=== PATIENT | female | born 1995 | race Caucasian/White ===

== ENCOUNTER 2016-03-23 15:25 | Emergency (ER) | payer BC ==
[2016-03-23 15:40] VITALS: BP 125/90
--- NOTE | 2016-03-23 15:45 | UC ---
Respiratory Complaint HPI - HPI Summary HPI Summary: pt c/o cough, fever, fatigue, generalized X1 week. Cough is worse at night. C/ o that chest is now feeling "tight". - History of Current Complaint Chief Complaint: UCGeneralIllness Stated Complaint: COUGH Time Seen by Provider: 03/23/16 15:37 Hx Obtained From: Patient Hx Last Menstrual Period: 1-2 weeks ago ?: No Onset/Duration: Gradual Onset, Lasting Days Timing: Constant Severity Initially: Mild Severity Currently: Mild Character: Cough: Nonproductive Aggravating Factors: Recumbent Position Associated Signs And Symptoms: Positive: URI - Allergies/Home Medications Allergies/Adverse Reactions: Allergies Allergy/AdvReac Type Severity Reaction Status Date / Time No Known Allergies Allergy Verified 02/01/13 20:26 Home Medications: Home Medications Ibuprofen [Advil] 03/23/16 [History] PMH/Surg Hx/FS Hx/Imm Hx Previously Healthy: Yes - Surgical History Surgical History: Yes Surgery Procedure, Year, and Place: wisdom teeth removal - Family History Known Family History: Positive: Other - positive URI - Social History Occupation: Student Lives: With Family Alcohol Use: Rare Substance Use Type: None Smoking Status (MU): Never Smoked Tobacco - Immunization History Most Recent Influenza Vaccination: unknown Review of Systems Constitutional: Fever, Chills, Fatigue Skin: Negative Eyes: Negative ENT: Sore Throat Respiratory: Cough Cardiovascular: Negative Gastrointestinal: Negative Genitourinary: Negative Motor: Negative Neurovascular: Negative Musculoskeletal: Myalgia Neurological: Negative Psychological: Negative All Other Systems Reviewed And Are Negative: Yes Physical Exam Triage Information Reviewed: Yes Appearance: Ill-Appearing Vital Signs: Initial Vital Signs Temp 99.1 F 03/23/16 15:36 Pulse 76 03/23/16 15:36 Resp 16 03/23/16 15:36 BP 125/90 03/23/16 15:36 Pulse Ox 99 03/23/16 15:36 Vital Signs Reviewed: Yes ENT Exam: Other ENT: Positive: Nasal congestion, Tonsillar swelling Neck exam: Normal Respiratory Exam: Normal Cardiovascular Exam: Normal Musculoskeletal Exam: Normal Neurological Exam: Normal Psychological Exam: Normal Skin Exam: Normal UC Diagnostic Evaluation - Laboratory O2 Sat by Pulse Oximetry: 99 Respiratory Course/Dx - Differential Dx/Diagnosis Differential Diagnosis/HQI/PQRI: Bronchitis, Other - uri Provider Diagnoses: Bronchitis Discharge - Discharge Plan Condition: Stable Disposition: HOME Prescriptions: Azithromycin TAB* [Zithromax TAB (Z-ARON) 250 mg #6 tabs] 2 tab PO .TODAY, THEN 1 DAILY #1 aron Benzonatate CAP* [Tessalon CAP*] 100 mg PO TID PRN #15 cap PRN Reason: Cough Patient Education Materials: Acute Bronchitis (ED) Referrals: [facility] [place] [facility] [Outside] No Primary Care Phys,NOPCP [Primary Care Provider] -
== END 2016-03-23 15:55 | disposition home or self-care (01) ==
LOC: UCEAST 15:25
DX: J40 Bronchitis, not specified as acute or chronic (principal)
CPT/HCPCS: 99202; G0463

== ENCOUNTER 2016-11-30 14:58 | Emergency (ER) | payer BC ==
[2016-11-30] MEDS ORDERED: Ketorolac INJ* 30 MG/ML 1 ML VIAL IV PUSH ONE (18:39)
[2016-11-30] MEDS ORDERED: Amoxicillin PO (*) 250 MG CAP PO ONE (18:39)
[2016-11-30] MEDS ORDERED: Dexamethasone IV* 4 MG/ML 1 ML (4 MG) IV SLOW PU ONE (18:39)
--- NOTE | 2016-11-30 19:11 | ED ---
Throat Pain/Nasal Congestion - HPI Summary HPI Summary: Pt here w/ tonsilitis x 1 week. Was seen by CC and had rapid strep as well as mono test - both negative. She is here today as her tonsils are quite swollen making swallowing uncomfortable although she is still able to swallow and breath. Denies fever, chills, N/V/D. Has intermittent ear pressure and headache - no neck pain or stiffness, no CP or shortness of breath nor cough. She has h/ o strep once but not recurrently. Tonsils are large at baseline but this is larger than usual. Tried ibuprofen yesterday - has not had any today. Imms are UTD. No sick contacts. - History of Current Complaint Chief Complaint: EDThroatPain Time Seen by Provider: 11/30/16 17:24 Hx Obtained From: Patient, Family/[employer] Farm[employer] - mom - Allergies/Home Medications Allergies/Adverse Reactions: Allergies Allergy/AdvReac Type Severity Reaction Status Date / Time No Known Allergies Allergy Verified 02/01/13 20:26 PMH/Surg Hx/FS Hx/Imm Hx Previously Healthy: Yes Endocrine/Hematology History: Denies: Autoimmune Disease Respiratory History: Denies: Hx Asthma - Surgical History Surgery Procedure, Year, and Place: wisdom teeth removal - Immunization History Immunizations Up to Date: Yes Infectious Disease History: No Infectious Disease History: Denies: Traveled Outside the [place] in Last 30 Days - Family History Known Family History: Positive: Other - positive URI - Social History Lives: With Family Alcohol Use: Occasionally Hx Substance Use: No Substance Use Type: Reports: None Hx Tobacco Use: No Smoking Status (MU): Never Smoked Tobacco Review of Systems Constitutional: Negative Negative: Fever, Chills, Fatigue Eyes: Negative Negative: Photophobia, Blurred Vision, Diplopia, Erythema ENT: Other - see HPI Cardiovascular: Negative Negative: Chest Pain Respiratory: Negative Negative: Shortness Of Breath, Cough Gastrointestinal: Negative Positive: no symptoms reported Musculoskeletal: Negative Skin: Negative Neurological: Other - see HPI Psychological: Normal All Other Systems Reviewed And Are Negative: Yes Physical Exam Triage Information Reviewed: Yes Vital Signs On Initial Exam: Initial Vitals Temp Pulse Resp BP Pulse Ox 98.7 F 69 14 152/95 97 11/30/16 15:15 11/30/16 15:15 11/30/16 15:15 11/30/16 15:15 11/30/16 15:15 Vital Signs Reviewed: Yes Appearance: Positive: Well-Appearing, No Pain Distress, Obese Skin: Positive: Warm, Dry - no rash Head/Face: Positive: Normal Head/Face Inspection - sinuses NTTP Eyes: Positive: Normal, EOMI, TAMAR, Conjunctiva Clear. Negative: Conjunctiva Inflammed, Discharge ENT: Positive: Hearing grossly normal, TMs normal, Tonsillar swelling - +3 B/L; pt's voice with subtle muffling - she is able to speak full sentences w/o hesitation, coughing or gagging - handling secretions well and breathing well, Tonsillar exudate - white/bryant within cryptic pockets. Negative: Nasal congestion, Nasal drainage, Trismus Neck: Positive: Supple, Nontender, No Lymphadenopathy - fullness w/o discrete LN palpation Respiratory/Lung Sounds: Positive: Clear to Auscultation, Breath Sounds Present. Negative: Rales, Rhonchi, Stridor, Wheezes Cardiovascular: Positive: Normal, RRR, S1, S2. Negative: Murmur, Rub Abdomen Description: Positive: Nontender, No Organomegaly, Soft Musculoskeletal: Positive: Normal, Strength/ROM Intact Neurological: Positive: Normal, Sensory/Motor Intact, Alert, Oriented to Person Place, Time, CN Intact II-III Psychiatric: Positive: Normal - calm, cooperative, appears relaxed Diagnostics - Vital Signs Vital Signs Temp Pulse Resp BP Pulse Ox 11/30/16 17:30 81 126/86 93 11/30/16 17:18 70 99 11/30/16 17:16 132/72 11/30/16 15:15 98.7 F 69 14 152/95 97 - Laboratory Lab Results: Lab Results 11/30/16 Range/Units 18:01 Group A Strep Rapid Negative (Negative) Lab Statement: Any lab studies that have been ordered have been reviewed, and results considered in the medical decision making process. EENT Course/Dx - Course Course Of Treatment: Pt presents w/ 1 week h/o tonsilitis - had (-) rapid strep and mono a couple of days ago at . Here today as tonsils are uncomfortably swollen. She is breathing and swallowing well. Repeated rapid strep which is negative but discussed option of starting anbx and sending throat swab for culture to confirm - she would like to start anbx. Also discussed treating with steroids and NSAID's for swelling - pt agrees w/ this plan as well. Reviewed danger s/sx of when to return to ED. Otherwise, pt will f/u w/ PCP this week - call tomorrow to schedule follow-up. If symptoms persist or return, may consult with ENT. Discussed case w/ Dr. Oshea who agrees w/ plan. - Diagnoses Provider Diagnoses: Acute tonsillitis Discharge - Discharge Plan Condition: Stable Disposition: HOME Prescriptions: Amoxicillin PO (*) [Amoxicillin 500 MG CAP*] 500 mg PO Q12H #18 cap Ibuprofen TAB* [Motrin TAB* 800 MG] 800 mg PO Q8HR PRN #20 tab PRN Reason: Pain predniSONE TAB* [Deltasone TAB*] 40 mg PO DAILY #8 tab Patient Education Materials: Tonsillitis (ED) Referrals: [facility] [place] [facility] [Outside] Natalio Oshea MD [Medical Doctor] - Additional Instructions: The cause of your tonsil swelling was not definitively identified today - this may be bacterial or viral. You were started on antibiotics to cover strep infection - a culture was also sent to confirm final result. Take antibiotics until results return. You may also take prednisone (complete course) and ibuprofen with food for pain and swelling. See prescriptions for dosing instructions. Furthermore, you may try warm salt water gargles and stay hydrated with fluids - water, gatorade, broth, etc. Follow-up with PCP tomorrow for appointment this week. Call tomorrow to schedule appointment. If symptoms persist or return, you may consult with ENT - contact information included here. *If you develop trouble breathing or swallowing, return to ED
[2016-12-01 00:44] VITALS: BP 127/72
== END 2016-11-30 20:40 | disposition home or self-care (01) ==
LOC: ED 14:58
DX: J03.90 Acute tonsillitis, unspecified (principal)
CPT/HCPCS: 87070; 87651; 96374; 99283; A9270-GY; J1100; J1885

== ENCOUNTER 2017-10-14 20:07 | Emergency (ER) | payer BC ==
[2017-10-14 20:23] VITALS: BP 155/109
--- NOTE | 2017-10-14 20:56 | UC ---
Respiratory Complaint HPI - HPI Summary HPI Summary: This patient is a 22 year old F presenting to [facility] [place] with a chief complaint of a productive cough since 2-3 days ago. The patient rates the pain 3/10 in severity. Patient reports chest congestion, headache, sore throat from coughing , and chills yesterday. Patient denies fever. - History of Current Complaint Chief Complaint: UCRespiratory Stated Complaint: URI Time Seen by Provider: 10/14/17 20:44 Hx Obtained From: Patient Hx Last Menstrual Period: now Onset/Duration: Lasting Days - since 2-3 days ago, Still Present Severity Initially: Mild Severity Currently: Mild Pain Intensity: 3 Pain Scale Used: 0-10 Numeric Character: Cough: Productive Associated Signs And Symptoms: Positive: Chills - yesterday. Negative: Fever - Allergies/Home Medications Allergies/Adverse Reactions: Allergies Allergy/AdvReac Type Severity Reaction Status Date / Time No Known Allergies Allergy Verified 10/14/17 20:23 PMH/Surg Hx/FS Hx/Imm Hx Endocrine History: Diabetes - Denies Cardiovascular History: Cardiac Disease - Denies - Surgical History Surgical History: Yes Surgery Procedure, Year, and Place: wisdom teeth removal - Family History Known Family History: Positive: Diabetes, Other - positive URI - Social History Occupation: Student Lives: With Family Alcohol Use: Occasionally Substance Use Type: None Smoking Status (MU): Never Smoked Tobacco - Immunization History Most Recent Influenza Vaccination: unknown Review of Systems Constitutional: Fever - Denies, Chills - Yesterday Respiratory: Cough - Productive, Other - Sore throat from coughing Cardiovascular: Chest Pain - Chest cogestion Neurological: Headache All Other Systems Reviewed And Are Negative: Yes Physical Exam - Summary Physical Exam Summary: VITAL SIGNS: Reviewed. GENERAL: Patient is a well-developed and nourished FEMALE who is lying comfortable in the stretcher. HEAD AND FACE: Maxillary sinus tenderness. EYES: PERRLA, EOMI x 2. EARS: Hearing grossly intact. MOUTH: Pharyngeal erythema. NECK: Supple, trachea is midline, no adenopathy, no JVD, no carotid bruit. CHEST: Symmetric, no tenderness at palpation LUNGS: Coarse breath sounds bilaterally. No wheezing or crackles. CVS: Regular rate and rhythm, S1 and S2 present, no murmurs or gallops appreciated. ABDOMEN: Soft, non-tender. Bowel sounds are normal. No abdominal abnormal pulsations. EXTREMITIES: Full ROM in all major joints, no edema, no cyanosis or clubbing. NEURO: Alert and oriented x 3. No acute neurological deficits. Speech is normal and follows commands. SKIN: Dry and warm Triage Information Reviewed: Yes Vital Signs: Initial Vital Signs Temp 97.8 F 10/14/17 20:20 Pulse 81 10/14/17 20:20 Resp 18 10/14/17 20:20 BP 155/109 10/14/17 20:20 Pulse Ox 100 10/14/17 20:20 Vital Signs Reviewed: Yes Diagnostic Evaluation - Laboratory O2 Sat by Pulse Oximetry: 100 - Radiology Radiology Interpretation Completed By: ED Physician - Chest X-Ray. Read 21:20. No acute cardiopulmonary disease. Pending official report. Respiratory Course/Dx - Course Course Of Treatment: Patient is a 22-year-old female who presents to the urgent care with chief complaint of having sinus pain, sinus drainage, postnasal drip, productive cough, and occasional fevers. Chest x-ray impression: Negative for an active disease. Rapid strep is negative. I believe that her symptoms are secondary to an acute sinusitis. The patient was given amoxicillin and she will get Sudafed. Patient is hemodynamically stable. Patient was instructed to return to the urgent care or go to the emergency department if any of the symptoms return or worsens. - Differential Dx/Diagnosis Provider Diagnoses: Acute sinusitis acute sinusitis Discharge - Sign-Out/Discharge Documenting (check all that apply): Patient Departure All imaging exams completed and their final reports reviewed: Yes - Discharge Plan Condition: Stable Disposition: HOME Prescriptions: Amoxicillin PO (*) [Amoxicillin 500 MG CAP*] 500 mg PO TID #30 cap Patient Education Materials: Sinusitis (ED) Referrals: [facility] [place] [facility] [Outside] No Primary Care Phys,NOPCP [Primary Care Provider] - Additional Instructions: Take medications as instructed and adhere to plan Take Acetaminophen or ibuprofen for pain or fever Increase your fluid intake Return to the or go to the emergency department if symptoms worsen Follow-up with primary care physician in next 2-3 days - Billing Disposition and Condition Condition: STABLE Disposition: Home - Attestation Statements Document Initiated by Scribe: Yes Documenting Scribe: Delano Anguiano Provider For Whom Scribe is Documenting (Include Credential): Nigel Cruz MD Scribe Attestation: I, Delano Anguiano, scribed for Nigel Cruz MD on 10/14/17 at 2130. Scribe Documentation Reviewed: Yes Provider Attestation: The documentation as recorded by the [email or web address] goode accurately reflects the service I personally performed and the decisions made by me, Nigel Cruz MD
[2017-10-14] MEDS ORDERED: Amoxicillin PO (*) 500 MG CAP PO ONE (21:20)
[2017-10-14] MEDS ORDERED: Pseudoephedrine TAB* 60 MG PO ONE (21:23)
--- NOTE | 2017-10-15 07:41 | RAD ---
HISTORY: cough COMPARISONS: None VIEWS: 4: Frontal dual-energy and lateral views of the chest. FINDINGS: CARDIOMEDIASTINAL SILHOUETTE: The cardiomediastinal silhouette is normal. MARY: The mary are normal. PLEURA: The costophrenic angles are sharp. No pleural abnormalities are noted. LUNG PARENCHYMA: The lungs are clear. ABDOMEN: The upper abdomen is clear. There is no subphrenic gas. BONES AND SOFT TISSUES: No bone or soft tissue abnormalities are noted. OTHER: None. IMPRESSION: NO ACTIVE CARDIOPULMONARY DISEASE. R0
== END 2017-10-14 22:00 | disposition home or self-care (01) ==
LOC: UCEAST 20:07
DX: J01.90 Acute sinusitis, unspecified (principal)
CPT/HCPCS: 71046; 84702; 87651; 99212; A9270-GY; G0463

== ENCOUNTER 2018-01-10 19:29 | Emergency (ER) | payer BC ==
[2018-01-10 19:43] VITALS: BP 144/96
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
[2018-01-10] MEDS ORDERED: Ibuprofen TAB* 600 MG PO ONE (20:02)
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
== END 2018-01-10 20:45 | disposition home or self-care (01) ==
LOC: UCEAST 19:29
DX: S80.11XA Contusion of right lower leg, initial encounter (principal); R03.0 Elevated blood-pressure reading, without diagnosis of hypertension; V49.9XXA Car occupant (driver) (passenger) injured in unspecified traffic accident, initial encounter; Y92.9 Unspecified place or not applicable
CPT/HCPCS: 71046; 99212; A9270-GY; G0463